=== PATIENT | female | born 1995 | race Caucasian/White ===

== ENCOUNTER 2019-08-03 12:20 | Emergency (ER) | payer OTHER ==
[2019-08-03 12:44] LABS: BASOPHILS % (AUTO) 0.5 %; EOSINOPHILS # (AUTO) 0.1 10^3/uL (0.0-0.7); EOSINOPHILS % (AUTO) 1.7 %; HGB - HEMOGLOBIN 14.7 g/dL (12.0-16.0); LYMPHOCYTES # (AUTO) 3.1 10^3/uL (1.5-3.5); LYMPHOCYTES % (AUTO) 41.2 %; MEAN CORPUSCULAR HEMOGLOBIN 31.4 pg (27.0-31.0); MEAN CORPUSCULAR HGB CONC 33.3 g/dL (32.0-36.0); MEAN CORPUSCULAR VOLUME 94.4 fL (81.0-99.0); MEAN PLATELET VOLUME 10.3 fL (7.9-10.8); MONOCYTES # (AUTO) 0.7 10^3/uL (0.0-1.0); MONOCYTES % (AUTO) 9.6 %; NEUTROPHILS # (AUTO) 3.5 10^3/uL (1.5-6.6); NEUTROPHILS % (AUTO) 46.7 %; PLT - PLATELET COUNT 260 10^3/uL (130-450); RED BLOOD COUNT 4.68 10^6/uL (4.20-5.40); RED CELL DISTRIBUTION WIDTH 11.5 % (12.0-15.0); WHITE BLOOD COUNT 7.4 x10^3/uL (4.8-10.8)
--- NOTE | 2019-08-03 12:48 | ED Physician Documentation ---
PD HPI BACK PAIN - Stated complaint Stated Complaint: L SIDE PX - Chief complaint Chief Complaint: Abd Pain - History obtained from History obtained from: Patient - History of Present Illness Timing - onset: How many days ago (2) Timing - duration: Days (2) Timing - details: Abrupt onset, Still present Location: Mid, Left Quality: Pain, Spasm, Sharp, Similar to prior episodes Associated symptoms: No: Fever, Weakness, Numbness, Incontinent of urine, Unable to urinate, Hematuria, Incontinent of stool Improves with: Rest Worsened by: Movement Similar symptoms before: Diagnosis (back strain) Recently seen: Not recently seen - Additional information Additional information: 24-year-old female with a history of prior back spasm has developed some pain in her left lower back in the flank area that radiates around to the front. She states that she was walking to her truck when this came on essentially out of the blue and has become severe. Review of Systems Constitutional: denies: Fever Eyes: denies: Decreased vision Ears: denies: Ear pain Nose: denies: Congestion Throat: denies: Sore throat Cardiac: denies: Chest pain / pressure, Palpitations Respiratory: denies: Dyspnea, Cough GI: denies: Abdominal Pain, Nausea, Vomiting : denies: Dysuria, Frequency Skin: denies: Rash Musculoskeletal: reports: Back pain. 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 : None HEENT: None Psych: None Musculoskeletal: None Derm: None - Past Surgical History Past Surgical History: No - Present Medications Home Medications: Ambulatory Orders Medication Instructions Recorded Confirmed Cyclobenzaprine [Flexeril] 10 mg PO TID PRN #20 tablet 08/03/19 Hydrocodone/Acetaminophen 1 - 2 each PO Q6H PRN #14 tablet 08/03/19 [Hydrocodon-Acetaminophen 5-325] - Allergies Allergies/Adverse Reactions: Allergies Allergy/AdvReac Type Severity Reaction Status Date / Time No Known Drug Allergies Allergy Verified 08/03/19 12:47 - Social History Does the pt smoke?: No Smoking Status: Never smoker - Immunizations Immunizations are current?: Yes - POLST Patient has POLST: No PD ED PE NORMAL - Vitals Vital signs reviewed: Yes (normal ) - General General: Alert and oriented X 3, Well developed/nourished, Other (appears in pain with circus supervisor tone 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 ) - HEENT HEENT: Atraumatic, PERRL, EOMI - Neck Neck: Supple, no meningeal sign - Cardiac Cardiac: RRR, No murmur - Respiratory Respiratory: No respiratory distress, Clear bilaterally - Abdomen Abdomen: Normal bowel sounds, Soft, Non tender, Non distended, No organomegaly - Back Back: No CVA TTP, No spinal TTP - Derm Derm: Normal color, Warm and dry, No rash - Extremities Extremities: No deformity, No edema - Neuro Neuro: Alert and oriented X 3, granular operator 2-12 intact, No motor deficit, No sensory deficit, Normal speech Eye Opening: Spontaneous Motor: Obeys Commands Verbal: Oriented GCS Score: 15 - Psych Psych: Normal mood, Normal affect Results - Vitals Vitals: Vital Signs - 24 hr 08/03/19 08/03/19 08/03/19 12:28 12:44 13:57 Temperature 36.6 C Heart Rate 85 76 75 Respiratory 22 16 16 Rate Blood Pressure 121/65 115/70 94/59 L O2 Saturation 100 100 100 Oxygen O2 Source Room air - Labs Labs: Laboratory Tests 08/03/19 08/03/19 08/03/19 12:35 12:37 12:37 WBC 7.4 RBC 4.68 Hgb 14.7 Hct 44.2 MCV 94.4 MCH 31.4 H MCHC 33.3 RDW 11.5 L Plt Count 260 MPV 10.3 Neut # (Auto) 3.5 Lymph # (Auto) 3.1 [place] # (Auto) 0.7 Eos # (Auto) 0.1 Baso # (Auto) 0.0 Absolute Nucleated RBC 0.00 Nucleated RBC % 0.0 Sodium 135 Potassium 3.6 Chloride 102 Carbon Dioxide 26 Anion Gap 7.0 BUN 12 Creatinine 0.6 Estimated GFR (MDRD) 125 Glucose 80 Calcium 9.8 Total Bilirubin 0.7 AST 22 ALT 21 Alkaline Phosphatase 48 Total Protein 8.3 H Albumin 4.8 Globulin 3.5 Albumin/Globulin Ratio 1.4 Lipase 36 Urine Color ORANGE Urine Clarity CLEAR Urine pH 7.0 Ur Specific [place] 1.015 Urine Protein Urine Glucose (UA) Urine Ketones NEGATIVE Urine Occult Blood NEGATIVE Urine Nitrite Urine Bilirubin COLOR INTERFERENCE Urine Urobilinogen Ur Leukocyte Esterase Urine RBC 0-5 Urine WBC 0-3 Ur Squamous Epith Cells RARE Squamous Urine Bacteria Few Ur Microscopic Review INDICATED Urine Culture Comments NOT INDICATED Urine HCG, Qual NEGATIVE - Rads (name of study) CTab/pel w/o Radiology: Prelim report reviewed (Impression: There is free fluid in the pelvis, no visible calculi.), EMP read indepedently, See rad report Procedures - Bedside sono Bedside sono by EMP: With his bedside ultrasound the left kidney is imaged it is sonographically nontender there is a question of trace hydro-. PD MEDICAL DECISION MAKING - ED course Complexity details: reviewed results, re-evaluated patient, considered diff erential, d/w patient ED course: This 24-year-old female presents to the emergency department with left flank pain and this does seem to that is modifiable by movement and I suspect back pain is the primary source of this patient's pain. However she is not tender on examination and examination of the left kidney by ultrasound does show some concern for mild hydronephrosis and a CT scan of the abdomen pelvis is undertaken.She has is administered a liter of saline 30 mg of Toradol and 10 mg of dexamethasone. Departure - Departure Disposition: 01 Home, Self Care Clinical Impression: Lumbar strain Qualifiers: Encounter type: initial encounter Qualified Code(s): S39.012A - Strain of muscle, fascia and tendon of lower back, initial encounter Condition: Stable Instructions: ED Sprain Strain Lumbar Follow-Up: AUBREY Perez [Provider Group] Prescriptions: Cyclobenzaprine [Flexeril] 10 mg PO TID PRN #20 tablet PRN Reason: Spasms Hydrocodone/Acetaminophen [Hydrocodon-Acetaminophen 5-325] 1 - 2 each PO Q6H PRN #14 tablet PRN Reason: pain
[2019-08-03 12:52] LABS: OCCULT BLOOD,URINE NEGATIVE (NEGATIVE)
[2019-08-03] MEDS: DEXAMETHASONE 10 MG/ML VIAL IVP STA (12:57)
[2019-08-03] MEDS: SODIUM CHLORIDE 0.9% 1,000 ML IV ONE (12:57)
[2019-08-03] MEDS: KETOROLAC 30 MG/ML VIAL IVP STA (12:57)
[2019-08-03 12:58] LABS: CLARITY,URINE CLEAR (CLEAR); HCG UR QUAL NEGATIVE
[2019-08-03 13:00] LABS: BILIRUBIN,URINE COLOR INTERFERENCE (NEGATIVE); KETONES,URINE (UA) NEGATIVE (NEGATIVE)
[2019-08-03 13:06] LABS: CALCIUM 9.8 mg/dL (8.5-10.3)
[2019-08-03 13:16] LABS: BACTERIA,URINE Few /HPF (None Seen); RBC,URINE 0-5 /HPF (0-5)
[2019-08-03 13:21] LABS: SQUAMOUS EPITHELIAL CELL,UR RARE Squamous (<= Few)
[2019-08-03 13:28] LABS: ALBUMIN 4.8 g/dL (3.2-5.5); ALBUMIN/GLOBULIN RATIO 1.4 (1.0-2.2); BILIRUBIN,TOTAL 0.7 mg/dL (0.2-1.0); CREATININE 0.6 mg/dL (0.4-1.0); TOTAL PROTEIN 8.3 g/dL (6.7-8.2)
--- NOTE | 2019-08-03 14:33 | CT Report ---
Reason: L flank pain Procedure Date: 08/03/2019 Accession Number: [id number] / [id number] Procedure: CT - Abdomen/Pelvis WO CPT Code: Final Report FULL RESULT: EXAM: CT ABDOMEN AND PELVIS (CT KUB) EXAM DATE: 08/03/2019 01:59 PM. CLINICAL HISTORY: Left flank pain for 3 days. COMPARISONS: None. TECHNIQUE: Routine axial helical CT imaging was performed through the abdomen and pelvis without IV contrast. Reconstructions: Coronal and sagittal. In accordance with CT protocol optimization, one or more of the following dose reduction techniques were utilized for this exam: automated exposure control, adjustment of mA and/or KV based on patient size, or use of iterative reconstructive technique. FINDINGS: Lung Bases: Unremarkable. Right Kidney/Ureter: No stones, hydronephrosis, or hydroureter. No perinephric fat stranding. Left Kidney/Ureter: No stones, hydronephrosis, or hydroureter. No perinephric fat stranding. Other Solid Organs: Noncontrast images of the solid organs are grossly unremarkable. Gallbladder/Bile Ducts: Unremarkable. Peritoneal Cavity: No free fluid, free air or shelby adenopathy. Bowel is grossly unremarkable. Pelvic Organs: The bladder appears unremarkable. The uterus and ovaries appear unremarkable. There is free fluid in the pelvis. Vasculature: Unremarkable. Other: None. IMPRESSION: There is free fluid in the pelvis. No visible calculi. RADIA
[2019-08-03 15:16] VITALS: BP 112/65
== END 2019-08-03 15:15 | disposition home or self-care (01) ==
LOC: ED 12:20
DX: S39.012A Strain of muscle, fascia and tendon of lower back, initial encounter (principal)
CPT/HCPCS: 36415; 74176; 80053; 81001; 81003; 81025; 83690; 85025; 87086; 96361; 96374; 99284

== ENCOUNTER 2019-12-21 08:34 | Emergency (ER) | payer OTHER ==
[2019-12-21] MEDS ORDERED: KETOROLAC 60 MG/2 ML VIAL IM STA (09:14)
[2019-12-21] MEDS ORDERED: HYDROmorphone 1 MG/ML CARPUJECT IM STA ×2 (09:14→11:06)
--- NOTE | 2019-12-21 09:17 | ED Physician Documentation ---
History of Present Illness - Stated complaint Stated Complaint: BACK PX/R LEG NUMBNESS - Chief complaint Chief Complaint: Back Pain - History obtained from History obtained from: Patient - Additonal information Additional information: Pt comes to the emergency department complaining of low back pain radiating down her right lower extremity through the hip/buttock. Patient states she has had it was the exact same thing on the left some months ago, and [place] She has been doing physical therapy, which she states is helpful, but so far, she has not had an MRI done. She states her doctors talked about it but has not been done. She states that she was a little more active this weekend but did not do anything strenuous and denies any direct injury. She states she has been upset because her bird recently , and This may have contributed. Patient denies any fever or chills. No dysuria. No abdominal pain. She does have some inguinal pain but this is not as bad as the back pain. No bowel or bladder incontinence. She complains of a little numbness and tingling sensation in her distal right lower extremity, but no weakness. Review of Systems Ten Systems: 10 systems reviewed and negative Constitutional: reports: Reviewed and negative Eyes: reports: Reviewed and negative Ears: reports: Reviewed and negative Nose: reports: Reviewed and negative Throat: reports: Reviewed and negative Cardiac: reports: Reviewed and negative Respiratory: reports: Reviewed and negative GI: reports: Reviewed and negative. 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 : None HEENT: None Psych: None Musculoskeletal: None Derm: None - Past Surgical History Past Surgical History: No - Present Medications Home Medications: Ambulatory Orders Medication Instructions Recorded Confirmed Cyclobenzaprine [Flexeril] 10 mg PO TID PRN #20 tablet 08/03/19 Hydrocodone/Acetaminophen 1 - 2 each PO Q6H PRN #14 tablet 08/03/19 [Hydrocodon-Acetaminophen 5-325] Cyclobenzaprine [Flexeril] 10 mg PO TID PRN #20 tablet 12/21/19 Hydrocodone/Acetaminophen 1 - 2 each PO Q4HR PRN #15 tablet 12/21/19 [Hydrocodone-Acetamin 5-325 mg] - Allergies Allergies/Adverse Reactions: Allergies Allergy/AdvReac Type Severity Reaction Status Date / Time No Known Drug Allergies Allergy Verified 12/21/19 08:55 - Social History Does the pt smoke?: No Smoking Status: Never smoker - Immunizations Immunizations are current?: Yes - POLST Patient has POLST: No PD ED PE NORMAL - Vitals Vital signs reviewed: Yes - General General: Alert and oriented X 3, No acute distress (Appears mildly uncomfortable.) - HEENT HEENT: PERRL - Neck Neck: Supple, no meningeal sign - Cardiac Cardiac: Strong equal pulses - Respiratory Respiratory: No respiratory distress - Abdomen Abdomen: Soft, Non tender, Non distended - Back Back: No CVA TTP, No spinal TTP, Other (Tenderness over the right lumbar paraspinal musculature, extending into the right sciatic area. No tenderness over the hip joint itself.) - Derm Derm: Normal color, Warm and dry, No rash - Extremities Extremities: No deformity, No calf tenderness / cord, Other - Neuro Neuro: Alert and oriented X 3, jigsaw operator 2-12 intact, No motor deficit, No sensory deficit, Normal speech - Psych Psych: Normal mood, Normal affect Results - Vitals Vitals: Vital Signs - 24 hr 12/21/19 12/21/19 08:45 11:45 Temperature 36.5 C 36.6 C Heart Rate 68 52 L Respiratory 16 18 Rate Blood Pressure 138/74 H 128/72 O2 Saturation 100 100 Oxygen O2 Source Room air - Rads (name of study) lumbar spine Radiology: Final report received, EMP read indepedently, See rad report (neg) PD MEDICAL DECISION MAKING - ED course Complexity details: reviewed results, re-evaluated patient, considered differential, d/w patient ED course: She was treated symptomatically in the emergency department with IM Toradol and Dilaudid and she was sent for a lumbar x-ray series. Patient requested MRI in the emergency department, but I explained to her that we do not have MRI available today, and even if we did, we do not do nonemergent MRIs from the ED. Pt required a second dose of Dilaudid, and was given a dose of Ativan for muscle relaxation, also. She was able to ambulate in the ED upon discharge. We have discussed the need for follow-up to arrange further work-up. We have also discussed the usual indications for return. Departure - Departure Disposition: 01 Home, Self Care Clinical Impression: Back pain Qualifiers: Back pain location: low back pain Chronicity: acute Back pain laterality: right Sciatica presence: with sciatica Sciatica laterality: sciatica of right side Qualified Code(s): M54.41 - Lumbago with sciatica, right side Condition: Stable Instructions: ED Back Care Tips, ED Spasm Back No Trauma, ED Sciatica Prescriptions: Hydrocodone/Acetaminophen [Hydrocodone-Acetamin 5-325 mg] 1 - 2 each PO Q4HR PRN #15 tablet PRN Reason: Pain Cyclobenzaprine [Flexeril] 10 mg PO TID PRN #20 tablet PRN Reason: Spasms Comments: X-rays look good. As we have discussed, your back symptoms would be best diagnosed by an MRI. Please make another appointment to follow-up with your primary care physician to try to get this scheduled. You may take the medications prescribed, as needed for the pain. Discharge Date/Time: 12/21/19 11:51
--- NOTE | 2019-12-21 09:52 | XRAY Report ---
PROCEDURE: Lumbar Spine 2 View INDICATIONS: low back injury/pain TECHNIQUE: 2 views of the lumbar spine were acquired. COMPARISON: Correlation is made with prior abdomen and pelvis CT 08/03/2019 FINDINGS: Bones: 5 [id number] vertebrae are present. There is minimal levoconvex lumbar sclerotic curvat ure. No significant AP alignment abnormality can be seen. No vertebral body compression fractures. No suspicious bony lesions. The disc heights are well preserved. Soft tissues: Overlying bowel gas pattern is normal. No suspicious soft tissue calcifications. IMPRESSION: Lumbar spine plain films within normal limits. If it would be helpful for clinical management decision making, please consider a dedicated lumbar MR I for further evaluation (assuming that there is no contraindication). Reviewed by: Cornelio Wilson MD on 12/21/2019 8:51 AM JAZMYN Approved by: Cornelio Wilson MD on 12/21/2019 8:51 AM JAZMYN Station ID: [id number]
[2019-12-21] MEDS ORDERED: LORazepam 2 MG/ML VIAL IVP STA (11:06)
[2019-12-21] MEDS ORDERED: LORazepam 2 MG/ML VIAL IM STA (11:11)
[2019-12-21 11:46] VITALS: BP 128/72
== END 2019-12-21 11:51 | disposition home or self-care (01) ==
LOC: ED 08:34
DX: M54.41 Lumbago with sciatica, right side (principal)
CPT/HCPCS: 72100; 96372; 96374; 96375; 99283; 99284; J1170; J2060

== ENCOUNTER 2019-12-31 07:34 | Outpatient (CLI) | payer OTHER ==
--- NOTE | 2020-01-02 05:18 | MRI Report ---
PROCEDURE: Thoracic Spine W/O INDICATIONS: back pain TECHNIQUE: Noncontrast sagittal T1 spine echo and T2 fast spin echo, sagittal STIR, axial T1 and T2 fast spin ec ho through the thoracic spine. COMPARISON: Correlation is made with the overlapping portions of the lumbar spine plain films 2019. Correlation is also made with the overlapping portions of prior abdomen and pelvis CT 08/03/2019 . FINDINGS: Image quality: Excellent. Alignment and Curvature: There is normal bony alignment. Bone Marrow: Marrow is of normal overall signal. No acute vertebral body compression fractures. Spinal Cord: Visualized spinal cord is normal in size and signal. Paraspinous Soft Tissues: No paravertebral masses. Miscellaneous: At T8-T9, there is a central/right disc protrusion seen, as on series 901 images 29 a nd 30. Mild central canal narrowing is seen. Associated mass effect is seen upon the ventral spinal cord. At the T11-T12 level on the right, there is a disc extrusion seen, as on series 901 image 8 and on se lori 41 image 8. The disc extrusion measures 1.3 cm craniocaudal. Minimal to mild central canal narro wing is seen. At this level, there is a central/left disc protrusion also seen, as on series 901 imag e 11. Milder degenerative changes are seen elsewhere. IMPRESSION: At the T11-T12 level, there is a right-sided disc extrusion seen. Milder degenerative changes are seen elsewhere. Reviewed by: Cornelio Wilson MD on 12/31/2019 9:24 AM JAZMYN Approved by: Cornelio Wilson MD on 12/31/2019 9:24 AM JAZMYN Station ID: [id number]
== END 2019-12-31 07:35 | disposition home or self-care (01) ==
LOC: DI 07:34
DX: M51.24 Other intervertebral disc displacement, thoracic region (principal); M47.814 Spondylosis without myelopathy or radiculopathy, thoracic region; M48.04 Spinal stenosis, thoracic region
CPT/HCPCS: 72146

== ENCOUNTER 2020-02-10 15:13 | Emergency (ER) | payer OTHER ==
[2020-02-10] MEDS ORDERED: SODIUM CHLORIDE 0.9% 1,000 ML IV STA (16:16)
[2020-02-10] MEDS ORDERED: PROCHLORPERAZINE 10 MG/2 ML VIAL IVP STA (16:16)
[2020-02-10] MEDS ORDERED: diphenhydrAMINE INJ 50 MG/ML VIAL IVP STA (16:17)
--- NOTE | 2020-02-10 16:21 | ED Physician Documentation ---
History of Present Illness - Stated complaint Stated Complaint: MIGRAINE,BACK SPASM - Chief complaint Chief Complaint: Neuro - History of Present Illness Timing: Prior to arrival, How many days ago (5) - Additonal information Additional information: 24-year-old female presents the emergency department for chief complaint of headache of 5 days duration. She reports a history of frequent migraines that typically occur once a week on average. They generally do not last longer than 3 days. Despite using her typical regimen of medications that include Sudafed, Motrin or Excedrin the headache has not abated. She denies any falls or trauma, no fevers. Denies any history of injection drug use. This headache was not sudden onset. She denies possibility of as she has not been sexually active. She has no abdominal pain or dysuria. she does report light sensitivity. She has been seen recently for back pain. She is taking Flexeril associated with this. She did have a MRI completed of her thoracic spine that did show disc herniation at T11 and 12. Review of Systems Constitutional: reports: Reviewed and negative Eyes: reports: Reviewed and negative Ears: reports: Reviewed and negative Nose: reports: Reviewed and negative Throat: reports: Reviewed and negative Cardiac: reports: Reviewed and negative Respiratory: reports: Reviewed and negative GI: reports: Nausea. denies: Abdominal Pain, Abdominal Swelling : denies: Dysuria, Frequency, Hesitancy Skin: reports: Reviewed and negative Musculoskeletal: reports: Reviewed and negative Neurologic: reports: Headache. 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 : None HEENT: None Psych: None Musculoskeletal: None Derm: None - Past Surgical History Past Surgical History: No - Present Medications Home Medications: Ambulatory Orders Medication Instructions Recorded Confirmed Cyclobenzaprine [Flexeril] 10 mg PO TID PRN #20 tablet 08/03/19 Hydrocodone/Acetaminophen 1 - 2 each PO Q6H PRN #14 tablet 08/03/19 [Hydrocodon-Acetaminophen 5-325] Cyclobenzaprine [Flexeril] 10 mg PO TID PRN #20 tablet 12/21/19 Hydrocodone/Acetaminophen 1 - 2 each PO Q4HR PRN #15 tablet 12/21/19 [Hydrocodone-Acetamin 5-325 mg] - Allergies Allergies/Adverse Reactions: Allergies Allergy/AdvReac Type Severity Reaction Status Date / Time No Known Drug Allergies Allergy Verified 02/10/20 15:29 - Social History Does the pt smoke?: No Smoking Status: Never smoker - Immunizations Immunizations are current?: Yes - POLST Patient has POLST: No PD ED PE EXPANDED - General General: Alert, No acute distress, Well developed/nourished - HEENT HEENT: Atraumatic, PERRL, EOMI - Eyes Eyes: PERRL, Normal accommodation - Neck Neck: Supple w/out meningeal sx, No tenderness. No: Stiff neck, Brudzinki's, JVD present - Cardiac Cardiac: Regular Rate, Regular Rhythm, Radial strong equal, Pedal strong equal, Cap refill < 2 sec - Respiratory Respiratory: Clear to ausultation rizwan. No: Distress, Labored - Abdomen Abdomen: Normal Bowel sounds. No: Tender to palpation - Derm Derm: Normal color. No: Rash - Neuro Neuro: Alert and Oriented X 3, CNII-XII intact, Normal gait, Normal finger nose, Normal speech - GCS Eye Opening: Spontaneous Motor: Obeys Commands Verbal: Oriented Total: 15 Results - Vitals Vitals: Vital Signs - 24 hr 02/10/20 02/10/20 02/10/20 15:26 16:18 17:30 Temperature 36.7 C 36.9 C Heart Rate 69 59 L 64 Respiratory 20 16 16 Rate Blood Pressure 137/69 H 119/85 H 113/67 O2 Saturation 97 100 100 Oxygen O2 Source Room air - Labs Labs: Laboratory Tests 02/10/20 16:08 Urine Color YELLOW Urine Clarity CLEAR Urine pH 7.0 Ur Specific [place] 1.015 Urine Protein NEGATIVE Urine Glucose (UA) NEGATIVE Urine Ketones NEGATIVE Urine Occult Blood NEGATIVE Urine Nitrite NEGATIVE Urine Bilirubin NEGATIVE Urine Urobilinogen 0.2 (NORMAL) Ur Leukocyte Esterase NEGATIVE Ur Microscopic Review NOT INDICATED Urine Culture Comments NOT INDICATED Urine HCG, Qual NEGATIVE PD MEDICAL DECISION MAKING - ED course Complexity details: reviewed results, re-evaluated patient, considered differential, d/w patient ED course: 24-year-old female presents the emergency department with a headache for the last 5 days. She reports a history of migraines and this is similar to others. Here in the emergency department she was given Toradol Benadryl and Compazine with moderate relief of the headache. She was also given Decadron prior to discharge. There are no red flags associated with this headache and she has a normal neurological and cerebellar exam. Her urine showed no signs of infection. Recommend close follow-up with primary care provider Departure - Departure Disposition: Home, Self Care Clinical Impression: Headache Qualifiers: Headache type: unspecified Headache chronicity pattern: acute headache Intractability: not intractable Qualified Code(s): R51.9 - Headache, unspecified Condition: Stable Record reviewed to determine appropriate education?: Yes Instructions: ED Headache Migraine Comments: Jessica I am glad that your headache is starting to feel better. I do recommend that you take the ibuprofen at home with food 2-3 times a day. Your urine today was unremarkable and showed no signs of affection. Please return to the emergency department if you are having worsening symptoms, uncontrolled vomiting or the headache returns and is suddenly severe or worse
[2020-02-10 16:54] LABS: BILIRUBIN,URINE NEGATIVE (NEGATIVE); GLUCOSE, URINE (UA) NEGATIVE (NEGATIVE); KETONES,URINE (UA) NEGATIVE (NEGATIVE); LEUKOCYTE ESTERASE, URINE NEGATIVE (NEGATIVE); NITRITE,URINE NEGATIVE (NEGATIVE); OCCULT BLOOD,URINE NEGATIVE (NEGATIVE); PROTEIN,URINE NEGATIVE (NEGATIVE); UROBILINOGEN,URINE 0.2 (NORMAL) E.U./dL (NORMAL)
[2020-02-10 16:58] LABS: CLARITY,URINE CLEAR (CLEAR); HCG UR QUAL NEGATIVE
[2020-02-10] MEDS ORDERED: KETOROLAC 30 MG/ML VIAL IVP STA (17:08)
[2020-02-10] MEDS ORDERED: DEXAMETHASONE 10 MG/ML VIAL PO STA (17:08)
[2020-02-10] MEDS ORDERED: CHERRY SYRUP 10 ML UDC PO ONE (17:08)
[2020-02-10 18:58] VITALS: BP 136/58
== END 2020-02-10 18:58 | disposition home or self-care (01) ==
LOC: ED 15:13
DX: R51.9 Headache, unspecified (principal)
CPT/HCPCS: 81003; 81025; 96361; 96374; 96375; 99282; 99283; A9270; J1200; 81001; 87086

== ENCOUNTER 2021-01-03 14:38 | Outpatient (CLI) | payer OTHER ==
--- NOTE | 2021-01-03 16:54 | MRI Report ---
PROCEDURE: Pelvis W/O INDICATIONS: SACROCOCCYGEAL DISORDERS TECHNIQUE: Noncontrast coronal T1 spin echo and STIR through the bony pelvis. Sagittal T2 FSE with fat saturati on, oblique axial PD FSE and T2 FSE with fat saturation through the symphysis pubis. COMPARISON: None. FINDINGS: Image quality: Excellent. Bones and joints: Visualized pelvic osseous structures shows no marrow edema or deformity. No fractur e or dislocation. Bilateral sacroiliac joint spaces are well-preserved. No evidence of ankylosis or b alexys erosion. No fluid is seen within sacroiliac joints. No suspicious intraosseous lesion. Visualized lower lumbar spine shows no compression fracture. Broad-based disc bulge and bilateral facet arthros is at L5-S1 level is seen causing mild central canal stenosis, no significant neural foraminal narrow ing. Soft tissues: No gross muscle or soft tissue signal abnormality is seen in pelvis and bilateral hip. There is no pelvic free fluid. Uterus and left ovary are within normal limits. Suggestion of a right ovarian cyst is noted and measures 3.3 x 2.4 cm in size. IMPRESSION: 1. No osseous abnormality is seen in sacrum and coccyx. Bilateral sacroiliac joint spaces are well-pr eserved. No evidence of ankylosis or bony erosion. 2. No gross muscle or soft tissue abnormality is seen in pelvis. 3. Incidentally noted of 3.3 x 2.4 x 2 cm cysts in the right adnexa likely represent right ovarian cy st. Reviewed by: Eloy Rojas MD on 01/03/2021 4:53 PM PDT Approved by: Eloy Rojas MD on 01/03/2021 4:53 PM PDT Station ID: [id number]
== END 2021-01-03 14:39 | disposition home or self-care (01) ==
LOC: DI 14:38
PROVIDERS: ATTEND Family Medicine
DX: M53.3 Sacrococcygeal disorders, not elsewhere classified (principal)

== ENCOUNTER 2021-01-12 09:27 | Emergency (ER) | payer OTHER ==
[2021-01-12 09:44] VITALS: BP 117/74
--- NOTE | 2021-01-12 10:00 | XRAY Report ---
PROCEDURE: Chest 1 View X-Ray INDICATIONS: fever, CP, cough TECHNIQUE: One view of the chest was acquired. COMPARISON: None FINDINGS: Surgical changes and devices: None. Lungs and pleura: No pleural effusions or pneumothorax. Lungs are clear. Mediastinum: Mediastinal contours appear normal. Heart size is normal. Bones and chest wall: No suspicious bony lesions. Overlying soft tissues appear unremarkable. IMPRESSION: No acute pulmonary process. Reviewed by: Yeimi Becker MD on 01/12/2021 9:59 AM PDT Approved by: Yeimi Becker MD on 01/12/2021 9:59 AM PDT Station ID: [id number]
--- NOTE | 2021-01-12 10:32 | ED Physician Documentation ---
History of Present Illness - Stated complaint Stated Complaint: CHEST PX,FEVER,BODY ACHES,HEADACHE - Chief complaint Chief Complaint: General - History obtained from History obtained from: Patient - Additonal information Additional information: Patient comes to the emergency department chief complaint of Body aches, cough, nausea, vomiting, and chest pain after receiving a Eyad [employer] Eyad vaccine 2 days ago. Patient states that She also had Covid at the end of November, but it did not feel this bad. Patient denies any other sick contacts. She quit smoking about 2 months ago and has had a persistent cough since. She is otherwise healthy. She does not use any inhalers at home. Review of Systems Ten Systems: 10 systems reviewed and negative Constitutional: reports: Fever, Chills, Myalgias, Sweats Eyes: reports: Reviewed and negative Ears: reports: Reviewed and negative Nose: reports: Reviewed and negative Throat: reports: Reviewed and negative Cardiac: reports: Reviewed and negative Respiratory: reports: Cough GI: reports: Nausea, Vomiting : reports: Reviewed and negative Skin: reports: Reviewed and negative Musculoskeletal: reports: Reviewed and negative Neurologic: reports: Reviewed and negative Psychiatric: reports: Reviewed and negative Endocrine: reports: Reviewed and negative Immunocompromised: reports: Reviewed and negative PD PAST MEDICAL HISTORY - Past Medical History Cardiovascular: None Respiratory: None Neuro: None Endocrine/Autoimmune: None GI: None OFFSET PRINTER: 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 : None HEENT: None Psych: None Musculoskeletal: None Derm: None - Past Surgical History Past Surgical History: No - Present Medications Home Medications: Ambulatory Orders Medication Instructions Recorded Confirmed Cyclobenzaprine [Flexeril] 10 mg PO TID PRN #20 tablet 08/03/19 Hydrocodone/Acetaminophen 1 - 2 each PO Q6H PRN #14 tablet 08/03/19 [Hydrocodon-Acetaminophen 5-325] Cyclobenzaprine [Flexeril] 10 mg PO TID PRN #20 tablet 12/21/19 Hydrocodone/Acetaminophen 1 - 2 each PO Q4HR PRN #15 tablet 12/21/19 [Hydrocodone-Acetamin 5-325 mg] - Allergies Allergies/Adverse Reactions: Allergies Allergy/AdvReac Type Severity Reaction Status Date / Time No Known Drug Allergies Allergy Verified 01/12/21 09:44 - Social History Does the pt smoke?: No Smoking Status: Never smoker Does the pt drink ETOH?: Yes Does the pt have substance abuse?: No - Immunizations Immunizations are current?: Yes - POLST Patient has POLST: No PD ED PE NORMAL - Vitals Vital signs reviewed: Yes - General General: Alert and oriented X 3, No acute distress, Well developed/nourished - HEENT HEENT: Atraumatic, PERRL, EOMI, Moist mucous membranes - Neck Neck: Supple, no meningeal sign - Cardiac Cardiac: RRR, No murmur, Strong equal pulses - Respiratory Respiratory: No respiratory distress, Clear bilaterally - Abdomen Abdomen: Soft, Non tender, Non distended - Derm Derm: Normal color, Warm and dry, No rash - Extremities Extremities: No deformity, No edema - Neuro Neuro: Alert and oriented X 3 - Psych Psych: Normal mood, Normal affect PD ED PE EXPANDED - Free text exam Free text exam: Right anterior chest wall lymphadenopathy medial aspect of right breast. Results - Vitals Vitals: Vital Signs - 24 hr 01/12/21 09:35 Temperature 36.9 C Heart Rate 66 Respiratory 15 Rate Blood Pressure 117/74 O2 Saturation 99 Oxygen O2 Source Room air - Rads (name of study) chest xr Radiology: Final report received, EMP read indepedently, See rad report (neg) PD MEDICAL DECISION MAKING - ED course Complexity details: reviewed results, re-evaluated patient, considered differential, d/w patient ED course: I discussed with the patient that her chest x-ray looks good and a viral panel is pending at this time. It is unlikely that she has Covid again given that she just had it a month ago and has now just been vaccinated. I suspect most likely that this is a reaction to the vaccine and I have discussed with her that she will just need to wait it out, along with symptomatic management. We have discussed follow-up and the usual indications for return. I have encouraged her to continue to abstain from tobacco use. Departure - Departure Disposition: 01 Home, Self Care Clinical Impression: Adverse reaction to COVID-19 vaccine Condition: Stable Comments: Your chest x-ray today looks good. A viral panel has been sent and is pending at this time. Most likely, the symptoms you are experiencing it are secondary to your immune reaction to the Covid vaccine. This will down on its own, most likely over the next few days. At this point in time, your viral panel is pending. You may monitor the results through the hospital website at [email or web address], by clicking on the "my [facility]" tab and signing up for the patient portal. Otherwise, take ibuprofen and Tylenol as needed, drink plenty of fluids, and get rest. You may follow-up with your primary doctor as needed. Forms: Activity restrictions
[2021-01-12] MEDS: ONDANSETRON ODT 4 MG TABLET TL STA (10:58)
[2021-01-12 11:08] LABS: B. PARAPERTUSSIS- RESP PCR PAN NOT DETECTED; B. PERTUSSIS- RESP PCR PANEL NOT DETECTED; C. PNEUMONIAE- RESP PCR PANEL NOT DETECTED; CORONAVIRUS 229E-RESP PCR NOT DETECTED; CORONAVIRUS HKU1-RESP PCR NOT DETECTED; CORONAVIRUS NL63-RESP PCR NOT DETECTED; CORONAVIRUS OC43-RESP PCR NOT DETECTED; HUMAN METAPNEUMOVIRUS NOT DETECTED; INFLUENZA A- RESP PCR PANEL NOT DETECTED; INFLUENZA B - RESP PCR PANEL NOT DETECTED; M. PNEUMONIAE- RESP PCR PANEL NOT DETECTED; PARAINFLUENZA VIRUS 1 NOT DETECTED; PARAINFLUENZA VIRUS 2 NOT DETECTED; PARAINFLUENZA VIRUS 3 NOT DETECTED; PARAINFLUENZA VIRUS 4 NOT DETECTED; RHINOVIRUS/ENTEROVIRUS NOT DETECTED; RSV- RESP PCR PANEL NOT DETECTED
[2021-01-12 11:10] LABS: SARS-CoV-2 -RESP PCR PANEL DETECTED
== END 2021-01-12 11:03 | disposition home or self-care (01) ==
LOC: ED 09:27
DX: U07.1 COVID-19 (principal); R11.2 Nausea with vomiting, unspecified; R05 Cough; T50.B95A Adverse effect of other viral vaccines, initial encounter; Z87.891 Personal history of nicotine dependence
CPT/HCPCS: 0202U; 71045; 99282; 99284; Q0162

== ENCOUNTER 2021-03-18 10:25 | Emergency (ER) | payer OTHER ==
[2021-03-18] MEDS ORDERED: KETOROLAC 30 MG/ML VIAL IVP STA (11:02)
[2021-03-18] MEDS ORDERED: SODIUM CHLORIDE 0.9% 1,000 ML IV STA (11:02)
[2021-03-18] MEDS ORDERED: DEXAMETHASONE 10 MG/ML VIAL IVP STA (11:03)
[2021-03-18] MEDS ORDERED: diphenhydrAMINE INJ 50 MG/ML VIAL IVP STA (11:03)
[2021-03-18] MEDS ORDERED: PROCHLORPERAZINE 10 MG/2 ML VIAL IVP STA (11:03)
--- NOTE | 2021-03-18 11:05 | ED Physician Documentation ---
PD HPI HEADACHE - Stated complaint Stated Complaint: MIGRANE - Chief complaint Chief Complaint: Neuro - History obtained from History obtained from: Patient - History of Present Illness Timing - onset: How many days ago (3) Timing - onset during: Rest Timing - duration: Days (3) Timing - details: Abrupt onset, Still present, Waxing and waning Quality: Throbbing Associated symptoms: Nausea, Vomiting, Vision changes. No: Weakness, Numbness, Syncope, Seizure, Eye pain Improved by: Rest, Dark room, Quiet, Meds Worsened by: Light, Noise, Moving Contributing factors: No: Anticoagulated Similar symptoms before: Diagnosis (migraine) Recently seen: Not recently seen - Additional information Additional information: 25-year-old female has been having a problem with her migraine headaches over the past month and she has had frequent headaches she has a headache today that she has not been able to make any progress on improving. She has had headaches the last 3 days in a row and she has been having some vomiting. She did not vomit today. She does have a an aura associated with these headaches. Review of Systems Constitutional: denies: Fever Eyes: reports: Photophobia. denies: Decreased vision Ears: denies: Ear pain Nose: denies: Congestion Throat: denies: Sore throat Cardiac: denies: Chest pain / pressure, Palpitations Respiratory: denies: Dyspnea, Cough GI: reports: Nausea. denies: Abdominal Pain : denies: Dysuria, Frequency PD PAST MEDICAL HISTORY - Past Medical History Cardiovascular: None Respiratory: None Neuro: Headaches, Migraines Endocrine/Autoimmune: None GI: None LEAD PAINTER: None : None HEENT: None Psych: None Musculoskeletal: None Derm: None - Past Surgical History Past Surgical History: No - Present Medications Home Medications: Ambulatory Orders Medication Instructions Recorded Confirmed Cyclobenzaprine [Flexeril] 10 mg PO TID PRN #20 tablet 08/03/19 Hydrocodone/Acetaminophen 1 - 2 each PO Q6H PRN #14 tablet 08/03/19 [Hydrocodon-Acetaminophen 5-325] Cyclobenzaprine [Flexeril] 10 mg PO TID PRN #20 tablet 12/21/19 Hydrocodone/Acetaminophen 1 - 2 each PO Q4HR PRN #15 tablet 12/21/19 [Hydrocodone-Acetamin 5-325 mg] - Allergies Allergies/Adverse Reactions: Allergies Allergy/AdvReac Type Severity Reaction Status Date / Time No Known Drug Allergies Allergy Verified 03/18/21 10:34 - Social History Does the pt smoke?: No Smoking Status: Never smoker Does the pt drink ETOH?: Yes Does the pt have substance abuse?: No - Immunizations Immunizations are current?: Yes - POLST Patient has POLST: No PD ED PE NORMAL - Vitals Vital signs reviewed: Yes (tachypneic and hypertensive ) - General General: Alert and oriented X 3, Well developed/nourished, Other (crying in pain in the position withdrawn) - HEENT HEENT: Atraumatic, PERRL, EOMI, Other (Photophobic appearing female) - Neck Neck: Supple, no meningeal sign, No bony TTP - Cardiac Cardiac: RRR, No murmur - Respiratory Respiratory: No respiratory distress, Clear bilaterally - Abdomen Abdomen: Normal bowel sounds, Soft, Non tender, Non distended, No organomegaly - Back Back: No CVA TTP, No spinal TTP - Derm Derm: Normal color, Warm and dry, No rash - Extremities Extremities: No deformity, No edema - Neuro Neuro: Alert and oriented X 3, guard lieutenant 2-12 intact, No motor deficit, No sensory deficit, Normal speech Eye Opening: Spontaneous Motor: Obeys Commands Verbal: Oriented GCS Score: 15 - Psych Psych: Other (mood is overwhelmed and the affect is labile ) Results - Vitals Vitals: Vital Signs - 24 hr 03/18/21 03/18/21 10:31 11:51 Temperature 37.0 C Heart Rate 62 58 L Respiratory 30 H 16 Rate Blood Pressure 156/112 H 103/62 O2 Saturation 97 97 Oxygen O2 Source Room air PD MEDICAL DECISION MAKING - ED course Complexity details: reviewed old records, reviewed results, re-evaluated patient, considered differential, d/w patient ED course: 25-year-old female with a history of migraine headaches has another migraine headache today she has headaches for the past 3 days and she has had some vomiting. She has an aura associated with these headaches. Today here in the emerge department she is administered saline Toradol Decadron Compazine and Benadryl. She has improvement in her headache. Departure - Departure Disposition: 01 Home, Self Care Clinical Impression: Migraine headache with aura Qualifiers: Status migrainosus presence: without status migrainosus Intractability: not intractable Qualified Code(s): G43.109 - Migraine with aura, not intractable, without status migrainosus Condition: Stable Instructions: ED Headache Migraine Follow-Up: GULSHAN HOLLEY DO [Primary Care Provider] -
[2021-03-18 12:30] VITALS: BP 100/57
== END 2021-03-18 12:30 | disposition home or self-care (01) ==
LOC: ED 10:25
DX: G43.109 Migraine with aura, not intractable, without status migrainosus (principal)
CPT/HCPCS: 36415; 96374; 96375; 99284; 99285; J1200

== ENCOUNTER 2021-06-20 08:00 | Outpatient (CLI) | payer OTHER ==
--- NOTE | 2021-06-20 12:58 | XRAY Report ---
PROCEDURE: Lumbar Spine Complete INDICATIONS: LOW BACK PX TECHNIQUE: 5 views of the lumbar spine were acquired. COMPARISON: December 21, 2019. FINDINGS: L-SPINE: 5 nonrib-bearing vertebrae. No acute displaced fracture or malalignment. The vertebral body heights are maintained. The disc space heights are maintained. The sacroiliac joints appear patent. SOFT TISSUES: No focal abnormality. IMPRESSION: 1.No acute osseous abnormality of the lumbar spine. Reviewed by: Clemente Mendez MD on 06/20/2021 12:[address] [facility] Approved by: Clemente Mendez MD on 06/20/2021 12:[address] [facility] Station ID: [id number]
== END 2021-06-20 23:59 | disposition home or self-care (01) ==
LOC: DI.N 08:00
PROVIDERS: ATTEND Nurse Practitioner
DX: M54.50 Low back pain, unspecified (principal)

== ENCOUNTER 2021-06-28 12:06 | Emergency (ER) | payer OTHER ==
[2021-06-28] MEDS ORDERED: DEXAMETHASONE 10 MG/ML VIAL PO STA (12:46)
[2021-06-28] MEDS ORDERED: CHERRY SYRUP 10 ML UDC PO ONE (12:46)
--- NOTE | 2021-06-28 12:49 | ED Physician Documentation ---
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 1 week ago she developed some pain in her left shoulder over the rhomboid area and this is progressed to include all of the left shoulder pain all the way up into the neck. She is having trouble sleeping now. She is been into her primary they gave her some meloxicam and some methocarbamol. She has not had adequate pain relief with these medicines. She has had other issues similar to this in her lower back repeatedly. Review of Systems Constitutional: denies: Fever Nose: denies: Congestion Throat: denies: Sore throat Respiratory: denies: Cough GI: denies: Abdominal Pain, Vomiting : denies: Dysuria, Frequency Skin: denies: Rash Musculoskeletal: reports: Back pain. 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 : None HEENT: None Psych: None Musculoskeletal: None Derm: None - Past Surgical History Past Surgical History: No - Present Medications Home Medications: Ambulatory Orders Medication Instructions Recorded Confirmed Cyclobenzaprine [Flexeril] 10 mg PO TID PRN #20 tablet 08/03/19 Hydrocodone/Acetaminophen 1 - 2 each PO Q6H PRN #14 tablet 08/03/19 [Hydrocodon-Acetaminophen 5-325] Cyclobenzaprine [Flexeril] 10 mg PO TID PRN #20 tablet 12/21/19 Hydrocodone/Acetaminophen 1 - 2 each PO Q4HR PRN #15 tablet 12/21/19 [Hydrocodone-Acetamin 5-325 mg] Cyclobenzaprine [Flexeril] 10 mg PO TID PRN #20 tablet 06/28/21 HYDROcod/ACETAM 5/325 [[place] 5/325] 1 - 2 tablet PO Q6H PRN #14 tablet 06/28/21 - Allergies Allergies/Adverse Reactions: Allergies Allergy/AdvReac Type Severity Reaction Status Date / Time No Known Drug Allergies Allergy Verified 06/28/21 12:29 - Social History Does the pt smoke?: No Smoking Status: Never smoker Does the pt drink ETOH?: Yes Does the pt have substance abuse?: No - Immunizations Immunizations are current?: Yes - POLST Patient has POLST: No PD ED PE NORMAL - Vitals Vital signs reviewed: Yes (normal ) - General General: Alert and oriented X 3, No acute distress, Well developed/nourished - HEENT HEENT: Atraumatic, PERRL, EOMI - Neck Neck: Supple, no meningeal sign, No bony TTP - Respiratory Respiratory: No respiratory distress - Abdomen Abdomen: Soft, Non tender - Back Back: No CVA TTP, No spinal TTP, Other (There is point tenderness without mass- effect over the right rhomboid muscle area. She is able to move her arm in a full range of motion. Pain extends from the rhomboid area up along the paraspinous muscles to the distal cervical paraspinous muscles.) - Derm Derm: Normal color, Warm and dry, No rash - Extremities Extremities: No deformity, No edema - Neuro Neuro: Alert and oriented X 3, career counselor 2-12 intact, No motor deficit, No sensory deficit, Normal speech Eye Opening: Spontaneous Motor: Obeys Commands Verbal: Oriented GCS Score: 15 - Psych Psych: Normal mood, Normal affect Results - Vitals Vitals: Vital Signs - 24 hr 06/28/21 06/28/21 12:24 13:12 Temperature 36.3 C L 36.4 C L Heart Rate 70 66 Respiratory 16 15 Rate Blood Pressure 118/68 128/64 O2 Saturation 100 100 Oxygen O2 Source Room air PD MEDICAL DECISION MAKING - ED course Complexity details: considered differential, d/w patient ED course: 26-year-old female with yet another overuse injury has not been able to sleep. She has had Toradol previously and had an untoward reaction. Today we are administering some dexamethasone will provide some pain medication muscle relaxant. I suspect this patient has had another non C-fiber injury with overuse. Departure - Departure Disposition: 01 Home, Self Care Clinical Impression: Rhomboid muscle strain Qualifiers: Encounter type: initial encounter Qualified Code(s): S29.012A - Strain of muscle and tendon of back wall of thorax, initial encounter Condition: Stable Instructions: ED Spasm Back No Trauma Follow-Up: GULSHAN HOLLEY DO [Primary Care Provider] - Prescriptions: Cyclobenzaprine [Flexeril] 10 mg PO TID PRN #20 tablet PRN Reason: Spasms HYDROcod/ACETAM 5/325 [Vilonia 5/325] 1 - 2 tablet PO Q6H PRN #14 tablet PRN Reason: Pain Comments: Jessica, today it looks like you have another overuse injury to your upper back. These injuries usually take 1 to 2 weeks to resolve and we have provided some pain medication a muscle relaxant for comfort. These have been E scribed to Markie in [place].My recommendation for treatment is to ice and stretch the area use the medications as needed for comfort and avoid excessive and prolonged use of any muscle group.
[2021-06-28 13:13] VITALS: BP 128/64
== END 2021-06-28 13:28 | disposition home or self-care (01) ==
LOC: ED 12:06
DX: S29.012A Strain of muscle and tendon of back wall of thorax, initial encounter (principal); X50.9XXA Other and unspecified overexertion or strenuous movements or postures, initial encounter; Y93.H3 Activity, building and construction; Y92.138 Other place on military base as the place of occurrence of the external cause; Y99.1 Military activity
CPT/HCPCS: 99282; 99283; A9270

== ENCOUNTER 2022-06-25 12:31 | Emergency (ER) | payer OTHER ==
[2022-06-25 12:52] VITALS: BP 134/80
[2022-06-25 13:13] LABS: BILIRUBIN,URINE NEGATIVE (NEGATIVE); GLUCOSE, URINE (UA) NEGATIVE (NEGATIVE); KETONES,URINE (UA) NEGATIVE (NEGATIVE); LEUKOCYTE ESTERASE, URINE NEGATIVE (NEGATIVE); NITRITE,URINE NEGATIVE (NEGATIVE); OCCULT BLOOD,URINE NEGATIVE (NEGATIVE); PROTEIN,URINE NEGATIVE (NEGATIVE); UROBILINOGEN,URINE 0.2 (NORMAL) E.U./dL (NORMAL)
[2022-06-25 13:14] LABS: CLARITY,URINE CLEAR (CLEAR)
[2022-06-25 13:15] LABS: HCG UR QUAL NEGATIVE
[2022-06-25] MEDS ORDERED: SODIUM CHLORIDE 0.9% 1,000 ML IV STA (13:22)
[2022-06-25] MEDS ORDERED: METOCLOPRAMIDE 10 MG/2 ML VIAL IVP STA (13:22)
[2022-06-25 13:24] LABS: BASOPHILS # (AUTO) 0.1 10^3/uL (0.0-0.1); BASOPHILS % (AUTO) 0.5 %; EOSINOPHILS # (AUTO) 0.2 10^3/uL (0.0-0.7); EOSINOPHILS % (AUTO) 1.7 %; HCT - HEMATOCRIT 43.6 % (37.0-47.0); HGB - HEMOGLOBIN 14.8 g/dL (12.0-16.0); LYMPHOCYTES # (AUTO) 3.2 10^3/uL (1.5-3.5); LYMPHOCYTES % (AUTO) 33.3 %; MEAN CORPUSCULAR HEMOGLOBIN 31.1 pg (27.0-31.0); MEAN CORPUSCULAR HGB CONC 33.9 g/dL (32.0-36.0); MEAN CORPUSCULAR VOLUME 91.6 fL (81.0-99.0); MEAN PLATELET VOLUME 10.7 fL (7.9-10.8); MONOCYTES # (AUTO) 0.7 10^3/uL (0.0-1.0); MONOCYTES % (AUTO) 7.4 %; NEUTROPHILS # (AUTO) 5.5 10^3/uL (1.5-6.6); PLT - PLATELET COUNT 275 10^3/uL (130-450); RED BLOOD COUNT 4.76 10^6/uL (4.20-5.40); RED CELL DISTRIBUTION WIDTH 12.3 % (12.0-15.0); WHITE BLOOD COUNT 9.6 x10^3/uL (4.8-10.8)
--- NOTE | 2022-06-25 13:24 | ED Physician Documentation ---
PD HPI ABD PAIN - Stated complaint Stated Complaint: VOMITING/SWEATING - Chief complaint Chief Complaint: Abd Pain - History obtained from History obtained from: Patient - Additional information Additional information: 27-year-old woman with history of fibromyalgia. Otherwise healthy. She started developing GI problems about 4 weeks ago. It started with diarrhea that went unabated for 2 weeks. She was taking Imodium for it. Now for the last 2 weeks she has vomiting such that she "has holes in her throat." She went to urgent care and they prescribed trazodone, Zoloft, and Zofran which have not been helpful. The other 2 medications were because she has had poor sleep because of recent break-up. Medications are not helping now. She has gurgly abdominal pain. No history of abdominal issues previously. 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 : None HEENT: None Psych: None Musculoskeletal: None Derm: None - Past Surgical History Past Surgical History: No - Present Medications Home Medications: Ambulatory Orders Medication Instructions Recorded Confirmed Cyclobenzaprine [Flexeril] 10 mg PO TID PRN #20 tablet 08/03/19 Hydrocodone/Acetaminophen 1 - 2 each PO Q6H PRN #14 tablet 08/03/19 [Hydrocodon-Acetaminophen 5-325] Cyclobenzaprine [Flexeril] 10 mg PO TID PRN #20 tablet 12/21/19 Hydrocodone/Acetaminophen 1 - 2 each PO Q4HR PRN #15 tablet 12/21/19 [Hydrocodone-Acetamin 5-325 mg] Cyclobenzaprine [Flexeril] 10 mg PO TID PRN #20 tablet 06/28/21 HYDROcod/ACETAM 5/325 [[place] 5/325] 1 - 2 tablet PO Q6H PRN #14 tablet 06/28/21 Amoxicillin 500 mg PO BID #19 cap 10/25/21 Metoclopramide [Reglan] 10 mg PO Q6H PRN #30 tablet 06/25/22 Omeprazole 40 mg PO DAILY #30 cap 06/25/22 - Allergies Allergies/Adverse Reactions: Allergies Allergy/AdvReac Type Severity Reaction Status Date / Time No Known Drug Allergies Allergy Verified 10/24/21 22:23 - Social History Does the pt smoke?: No Smoking Status: Never smoker Does the pt drink ETOH?: Yes Does the pt have substance abuse?: No - Immunizations Immunizations are current?: Yes - POLST Patient has POLST: No PD ED PE NORMAL - Vitals Vital signs reviewed: Yes - General General: Alert and oriented X 3, No acute distress - HEENT HEENT: Pharynx benign - Neck Neck: Supple, no meningeal sign, No bony TTP - Cardiac Cardiac: RRR, No murmur - Respiratory Respiratory: No respiratory distress, Clear bilaterally - Abdomen Abdomen: Other (Hypoactive bowel sounds, mild diffuse tenderness without surgical signs.) - Back Back: No CVA TTP - Derm Derm: Normal color, Warm and dry - Neuro Neuro: Alert and oriented X 3, Normal speech Results - Vitals Vitals: Vital Signs - 24 hr 06/25/22 12:47 Temperature 36.4 C L Heart Rate 71 Respiratory 16 Rate Blood Pressure 134/80 H O2 Saturation 99 Oxygen O2 Source Room air - Labs Labs: Laboratory Tests 06/25/22 06/25/22 06/25/22 13:02 13:09 13:09 WBC 9.6 RBC 4.76 Hgb 14.8 Hct 43.6 MCV 91.6 MCH 31.1 H MCHC 33.9 RDW 12.3 Plt Count 275 MPV 10.7 Neut # (Auto) 5.5 Lymph # (Auto) 3.2 [place] # (Auto) 0.7 Eos # (Auto) 0.2 Baso # (Auto) 0.1 Absolute Nucleated RBC 0.00 Nucleated RBC % 0.0 Sodium 142 Potassium 4.3 Chloride 104 Carbon Dioxide 28 Anion Gap 10.0 BUN 8 Creatinine 0.8 Estimated GFR (MDRD) 87 L Glucose 87 Calcium 9.8 Total Bilirubin 0.5 AST 23 ALT 26 Alkaline Phosphatase 57 Total Protein 8.2 Albumin 4.7 Globulin 3.5 Albumin/Globulin Ratio 1.3 Lipase 32 Urine Color YELLOW Urine Clarity CLEAR Urine pH 8.0 H Ur Specific [place] 1.015 Urine Protein NEGATIVE Urine Glucose (UA) NEGATIVE Urine Ketones NEGATIVE Urine Occult Blood NEGATIVE Urine Nitrite NEGATIVE Urine Bilirubin NEGATIVE Urine Urobilinogen 0.2 (NORMAL) Ur Leukocyte Esterase NEGATIVE Ur Microscopic Review NOT INDICATED Urine Culture Comments NOT INDICATED Urine HCG, Qual NEGATIVE PD Medical Decision Making - ED course ED course: 27-year-old woman whose had ongoing GI issues for the last 4 weeks. She was feeling much better after IV Reglan and IV fluids here. CBC, CMP are normal. UA and test are normal/negative. CT unrevealing. Could still be gastritis, IBS, ulcer. 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 Departure - Departure Disposition: 01 Home, Self Care Clinical Impression: Abdominal pain Qualifiers: Abdominal location: generalized Qualified Code(s): R10.84 - Generalized abdominal pain Condition: Good Record reviewed to determine appropriate education?: Yes Instructions: ED Abdominal Pain Female Non-Specific Abdominal Pain Prescriptions: Omeprazole 40 mg PO DAILY #30 cap Metoclopramide [Reglan] 10 mg PO Q6H PRN #30 tablet PRN Reason: nausea or headache Comments: You were seen today for ongoing GI issues. We did a CBC and a CMP which were normal. Urine test and urinalysis were normal. You are feeling much better after Reglan which is an antinausea medicine and some IV fluids. I am prescribing the Reglan as well. You should follow-up with your flight surgeon, Next available appointment for consideration for reevaluation, potentially GI referral for endoscopies. Return if worse.
[2022-06-25 13:38] LABS: ALBUMIN 4.7 g/dL (3.2-5.5); ALBUMIN/GLOBULIN RATIO 1.3 (1.0-2.2); BILIRUBIN,TOTAL 0.5 mg/dL (0.2-1.0); CALCIUM 9.8 mg/dL (8.5-10.3); CREATININE 0.8 mg/dL (0.4-1.0); POTASSIUM 4.3 mmol/L (3.5-5.0); TOTAL PROTEIN 8.2 g/dL (6.7-8.2)
[2022-06-25] MEDS ORDERED: iohexoL-300 100 ML VIAL ONE (13:39)
[2022-06-25] MEDS ORDERED: iohexoL-300 100 ML VIAL IVP ONE (13:58)
--- NOTE | 2022-06-25 14:20 | CT Report ---
PROCEDURE: ABDOMEN/PELVIS W INDICATIONS: iv only, gen abd pain CONTRAST: 100ml omni 300 n TECHNIQUE: After the administration of contrast, 5 mm thick sections acquired from the diaphragms to the symphys is. 5 mm thick coronal and sagittal reformats were acquired. For radiation dose reduction, the foll owing was used: automated exposure control, adjustment of mA and/or kV according to patient size. COMPARISON: None. FINDINGS: Image quality: Excellent. ABDOMEN: Lung bases: Lung bases are clear. Heart size is normal. Solid organs: Liver and spleen are normal in size and enhancement. Hepatic density is decreased con sistent with hepatic steatosis. Gallbladder is normal. Biliary system is non dilated. Pancreas enha nces normally. No adrenal nodules. Kidneys demonstrate normal size and enhancement, without hydrone phrosis. Peritoneum and bowel: Bowel loops demonstrate normal wall thickness and caliber. No free fluid or a ir. Nodes and vessels: No retroperitoneal or mesenteric adenopathy by size criteria. Aorta and inferior vena cava are normal in size. Miscellaneous: No ventral hernias. PELVIS: Genitourinary: Bladder wall thickness is normal. Miscellaneous: No inguinal hernias or adenopathy. Bones: No suspicious bony lesions. No vertebral body compression fractures. IMPRESSION: No acute abnormality of the abdomen or pelvis. Reviewed by: Aaron Delatorre on 06/25/2022 1:19 PM [email or web address] Approved by: Aaron Delatorre on 06/25/2022 1:19 PM [email or web address] Station ID: [id number]
== END 2022-06-25 15:05 | disposition home or self-care (01) ==
LOC: ED 12:31
DX: R10.9 Unspecified abdominal pain (principal)
CPT/HCPCS: 36415; 74177; 80053; 81003; 81025; 83690; 85025; 96361; 96374; 99284; J2765; Q9967; 81001; 87086